=== PATIENT | female | born 1945 | race Hispanic/Latino ===

== ENCOUNTER → 2017-08-13 | Outpatient (CLI) | payer MEDICARE, OTHER | END | disposition home or self-care (01) | LOC: RAH 09:07 | PROVIDERS: ATTEND Internal Medicine Cardiovascular Disease | DX: I71.2 Thoracic aortic aneurysm, without rupture (principal) | CPT/HCPCS: 71550 ==

== ENCOUNTER 2017-10-19 16:20 | Emergency (ER) | payer OTHER | END 2017-10-19 18:28 | disposition home or self-care (01) | LOC: EDH 16:20 | DX: I10 Essential (primary) hypertension (principal); R51 Headache; E11.9 Type 2 diabetes mellitus without complications; Z85.038 Personal history of other malignant neoplasm of large intestine; Z88.1 Allergy status to other antibiotic agents; Z88.8 Allergy status to other drugs, medicaments and biological substances | CPT/HCPCS: 93005 ==

== ENCOUNTER → 2018-08-26 | Outpatient (CLI) | payer OTHER ==
[~2018-08-26] MED LIST: AMLO1CAP2 PO; ASPI-555 PO; HYDR100T27 PO; HYDR25TA PO; LEVO75 PO
== END | disposition home or self-care (01) ==
LOC: SHCH 10:08
PROVIDERS: ATTEND Internal Medicine Cardiovascular Disease
DX: R09.89 Other specified symptoms and signs involving the circulatory and respiratory systems (principal)
CPT/HCPCS: 93880

== ENCOUNTER 2019-01-08 07:30 | Day surgery (SDC) | payer OTHER ==
[~2019-01-08] VITALS: Ht 149.9 cm; Wt 52.2 kg
[2019-01-08] VITALS (7 sets, daily range): BP systolic 85–120; BP diastolic 28–54
[~2019-01-08 07:30] MED LIST changes: -HYDR25TA PO; +PROPOFOL 10 MG/ML 20ML VIAL IV ONE; +SODIUM CHLORIDE 0.9% 1000ML 1,000 ML IV ONE
== END 2019-01-08 13:03 | disposition home or self-care (01) ==
LOC: ENDO 07:30 → DAH 07:30 → ENDO 13:03
PROVIDERS: ATTEND Internal Medicine
DX: Z12.11 Encounter for screening for malignant neoplasm of colon (principal); K57.30 Diverticulosis of large intestine without perforation or abscess without bleeding; K64.0 First degree hemorrhoids; I10 Essential (primary) hypertension; E78.5 Hyperlipidemia, unspecified; K21.9 Gastro-esophageal reflux disease without esophagitis; M19.90 Unspecified osteoarthritis, unspecified site; E11.9 Type 2 diabetes mellitus without complications; E03.9 Hypothyroidism, unspecified; Z98.0 Intestinal bypass and anastomosis status; Z86.010 Personal history of colon polyps; R00.1 Bradycardia, unspecified; Z79.82 Long term (current) use of aspirin; Z79.899 Other long term (current) drug therapy; Z85.038 Personal history of other malignant neoplasm of large intestine; Z87.442 Personal history of urinary calculi; Z88.1 Allergy status to other antibiotic agents; Z88.8 Allergy status to other drugs, medicaments and biological substances; Z90.49 Acquired absence of other specified parts of digestive tract
CPT/HCPCS: 82948 ×2; 93005; A4606; G0105; J2704; J7030; 45378

== ENCOUNTER → 2019-08-21 | Outpatient (CLI) | payer OTHER ==
[~2019-08-21] MED LIST changes: +IOHEXOL-350 75 ML VIAL IV ONE; -PROPOFOL 10 MG/ML 20ML VIAL IV ONE; -SODIUM CHLORIDE 0.9% 1000ML 1,000 ML IV ONE
== END | disposition home or self-care (01) ==
LOC: RAH 07:47
PROVIDERS: ATTEND Internal Medicine Cardiovascular Disease
DX: J98.11 Atelectasis (principal); I70.0 Atherosclerosis of aorta; M43.8X6 Other specified deforming dorsopathies, lumbar region; M47.814 Spondylosis without myelopathy or radiculopathy, thoracic region; Z90.49 Acquired absence of other specified parts of digestive tract
CPT/HCPCS: 71275; Q9967

== ENCOUNTER 2020-03-08 11:41 | Observation (INO) | payer OTHER ==
[~2020-03-08] VITALS: Ht 149.9 cm; Wt 49.9 kg
[~2020-03-08 11:41] MED LIST changes: -ASPI-555 PO; +ASPI-556 PO; -IOHEXOL-350 75 ML VIAL IV ONE
[2020-03-08 12:09] LABS: APPEARANCE,URINE Clear (CLEAR); BILIRUBIN,URINE Negative (NEGATIVE); COLOR,URINE Yellow (YELLOW); GLUCOSE, URINE (UA) Negative (NEGATIVE); KETONES,URINE Negative (NEGATIVE); LEUKOCYTE ESTERASE ,URINE Negative (NEGATIVE); NITRATE,URINE Negative (NEGATIVE); OCCULT BLOOD,URINE Negative (NEGATIVE); PROTEIN,URINE Negative (NEGATIVE); UROBILINOGEN,URINE 0.2 mg/dL (0.2-1.0)
[2020-03-08] MEDS ORDERED: SODIUM CHLORIDE 0.9% 500ML 500 ML IV ONE ×2 (12:22→14:55)
[2020-03-08 12:42] LABS: CREATININE 0.8 mg/dL (0.5-1.5); POTASSIUM 3.6 mmol/L (3.5-5.1)
[2020-03-08 12:50] LABS: ALBUMIN 4.1 g/dL (3.5-5.0); BILIRUBIN,TOTAL 0.2 mg/dL (0.2-1.0); TOTAL PROTEIN, SERUM 8.6 g/dL (6.0-8.3)
[2020-03-08 12:55] LABS: MAGNESIUM 1.8 mg/dL (1.80-2.40); THYROID STIMULATING HORMONE 0.45 uIU/mL (0.36-3.74)
[2020-03-08 13:01] LABS: BASOPHILS % (AUTO) 0.5 % (0.0-5.0); EOSINOPHILS % (AUTO) 0.2 % (0.0-8.0); HEMATOCRIT 39.1 % (36-48); MEAN CORPUSCULAR HEMOGLOBIN 32.4 pg (27.0-33.0); MEAN CORPUSCULAR HGB CONC 33.8 g/dL (32.0-36.0); MEAN CORPUSCULAR VOLUME 96.1 fL (79-99); NEUTROPHILS % (AUTO) 78.7 % (40.0-77.0); PLATELET COUNT (AUTO) 320 K/uL (130-400); RED BLOOD CELL COUNT(AUTO) 4.07 MIL/uL (4.00-5.50); RED CELL DISTRIBUTION WIDTH 12.5 % (11.0-15.5); WHITE BLOOD COUNT (AUTO) 8.9 K/uL (4.8-10.8)
[2020-03-08] MEDS ORDERED: SODIUM CHLORIDE 0.9% 1000ML 1,000 ML IV ONE (16:44)
[2020-03-08 16:57] LABS: CREATINE KINASE, TOTAL 65 U/L (21-232); MYOGLOBIN 29 ng/mL (10-92); TROPONIN I < 0.04 ng/mL (0.00-0.06)
[2020-03-08] MEDS ORDERED: GUAIFENESIN-DM 200/20 MG 10 ML PO PRN (18:00)
[2020-03-08] MEDS ORDERED: HYDRALAZINE HCL 20 MG/ML VIAL IV PRN (18:00)
[2020-03-08] MEDS ORDERED: POTASSIUM CHLORIDE 20MEQ/100ML 100 ML IV PRN (18:00)
[2020-03-08] MEDS ORDERED: POTASSIUM CHLORIDE 10% ELIXIR 20 MEQ/15 ML UDCUP PO PRN (18:00)
[2020-03-08] MEDS ORDERED: MORPHINE SULFATE 2 MG/ML 1ML SYG IV PRN (18:00)
[2020-03-08] MEDS ORDERED: ZOLPIDEM TARTRATE 5 MG TAB PO PRN (18:00)
[2020-03-08] MEDS ORDERED: POTASSIUM CHLORIDE 20 MEQ ERTAB PO PRN (18:00)
[2020-03-08] MEDS ORDERED: NITROGLYCERIN 0.4 MG SL TAB SL PRN (18:00)
[2020-03-08] MEDS ORDERED: LACTULOSE 20 GM/30 ML UDCUP PO PRN (18:00)
[2020-03-08] MEDS ORDERED: LIDOCAINE HCL-MPF 1% 2ML VIAL IV PRN (18:00)
[2020-03-08] MEDS ORDERED: ONDANSETRON HCL 4 MG/2 ML VIAL IV PRN (18:00)
[2020-03-08] MEDS ORDERED: MAG HYDROX/AL HYDROX/SIMETH ES 30 ML SUSP UDCUP PO PRN (18:00)
[2020-03-08] MEDS ORDERED: ACETAMINOPHEN 325 MG TAB PO PRN ×2 (18:00)
[2020-03-08] MEDS ORDERED: MAGNESIUM 2GM PREMIX 50ML 50 ML IV PRN (18:00)
[2020-03-08] MEDS ORDERED: DiphenhydrAMINE HCL 50 MG/ML VIAL IV PRN (18:00)
[2020-03-08] MEDS ORDERED: DIPHENHYDRAMINE HCL 25 MG CAPSULE PO PRN (18:00)
[2020-03-08] MEDS ORDERED: POTASSIUM CHLORIDE 20 MEQ ERTAB PO ONE (19:42)
[2020-03-08] MEDS ORDERED: MAGNESIUM 2GM PREMIX 50ML 50 ML IV ONE (19:43)
[2020-03-08] MEDS ORDERED: ENOXAPARIN SODIUM 40 MG/0.4 ML SYRINGE SQ ONE (19:43)
[2020-03-08] MEDS: FAMOTIDINE 20MG TAB 20 MG TAB PO SCH (21:00)
[2020-03-08] MEDS: INSULIN HUMULIN R 100 UNIT/ML 3ML SQ SCH (21:00)
[2020-03-09 02:01] LABS: CREATINE KINASE, TOTAL 41 U/L (21-232); MYOGLOBIN 19 ng/mL (10-92); TROPONIN I < 0.04 ng/mL (0.00-0.06)
[2020-03-09 06:50] LABS: BASOPHILS % (AUTO) 0.7 % (0.0-5.0); EOSINOPHILS % (AUTO) 2.9 % (0.0-8.0); HEMATOCRIT 36.5 % (36-48); LYMPHOCYTES % (AUTO) 31.3 % (21.0-51.0); MEAN CORPUSCULAR HGB CONC 32.9 g/dL (32.0-36.0); MEAN CORPUSCULAR VOLUME 97.3 fL (79-99); MONOCYTES % (AUTO) 8.9 % (3.0-13.0); NEUTROPHILS % (AUTO) 55.8 % (40.0-77.0); PLATELET COUNT (AUTO) 281 K/uL (130-400); RED BLOOD CELL COUNT(AUTO) 3.75 MIL/uL (4.00-5.50); RED CELL DISTRIBUTION WIDTH 12.7 % (11.0-15.5); WHITE BLOOD COUNT (AUTO) 5.5 K/uL (4.8-10.8)
[2020-03-09 07:04] LABS: HEMOGLOBIN A1C 5.4 % (4.0-6.0)
[2020-03-09 07:08] LABS: ALBUMIN 3.2 g/dL (3.5-5.0); BILIRUBIN,TOTAL 0.2 mg/dL (0.2-1.0); CREATININE 0.6 mg/dL (0.5-1.5); MAGNESIUM 2.7 mg/dL (1.80-2.40); TOTAL PROTEIN, SERUM 7.1 g/dL (6.0-8.3)
[2020-03-09 07:15] LABS: CREATINE KINASE, TOTAL 55 U/L (21-232); MYOGLOBIN 27 ng/mL (10-92); TROPONIN I < 0.04 ng/mL (0.00-0.06)
[2020-03-09 07:22] LABS: B-TYPE NATRIURETIC PEPTIDE 106 pg/mL (0-100)
[2020-03-09] MEDS: INSULIN HUMULIN R 100 UNIT/ML 3ML SQ SCH ×2 (07:30→11:30)
[2020-03-09] MEDS ORDERED: SODIUM CHLORIDE 0.9% 1000ML 1,000 ML IV ONE (08:47)
[2020-03-09] MEDS ORDERED: FAMOTIDINE 20MG TAB 20 MG TAB ONE (08:47)
[2020-03-09] MEDS ORDERED: ENOXAPARIN SODIUM 40 MG/0.4 ML SYRINGE SQ ONE (08:47)
[2020-03-09] MEDS ORDERED: ENOXAPARIN SODIUM 40 MG/0.4 ML SYRINGE SQ SCH (09:00)
[2020-03-09] MEDS: FAMOTIDINE 20MG TAB 20 MG TAB PO SCH (09:00)
[2020-03-09] MEDS ORDERED: FLU VACC QS2020-21(6MOS UP)/PF 60 MCG/0.5 ML ML IM ONE (10:00)
[2020-03-09] MEDS ORDERED: SODIUM CHLORIDE 0.9% 1000ML 1,000 ML IV SCH (12:30)
--- NOTE | 2020-03-09 14:05 | NUR ---
DISCHARGE INSTRUCTIONS GIVEN TO PATIENT, MADE AWARE SHE NEEDS TO FOLLOW UP WITH PCP DR. ROHAN MORENO TOMORROW MORNING. INSTRUCTED TO HOLD BP MEDICATIONS. PATIENT AT THIS TIME DENIES ANY DIZZINESS OR HEADACHE. BP STABLE 121/50 PULSE62 O2 SAT 98% ON ROOM AIR. PATIENT WILL BE PICKED UP BY HER SISTER.
[2020-03-09 14:07] VITALS: BP 121/50
[2020-03-09] MEDS ORDERED: HYDRALAZINE HCL 25 MG TABLET PO SCH (17:00)
--- NOTE | 2020-03-09 17:36 | NUR ---
CM NOTE CHART REVIEWED, PATIENT DISCHARGED, OBS STATUS, NO CONCERNS VOICED BY RN OR TO RN BY PATIENT, NO TRIGGERS TO CM , DETAILED CM ASSESSMENT DEFERRED Addendum: 03/09/20 at 1738 by SHAKILA PA RN CM Amended: Links added.
[2020-03-10] MEDS ORDERED: LEVOTHYROXINE 75 MCG TABLET PO SCH (06:30)
[2020-03-10] MEDS ORDERED: ASPIRIN 81 MG EC TAB PO SCH (09:00)
== END 2020-03-09 14:51 | disposition home or self-care (01) ==
LOC: EDH 11:41 → EDHIP 16:00
PROVIDERS: ADMIT Internal Medicine; ATTEND Internal Medicine
DX: I95.9 Hypotension, unspecified (principal); I10 Essential (primary) hypertension; C18.9 Malignant neoplasm of colon, unspecified; E11.9 Type 2 diabetes mellitus without complications; Z90.49 Acquired absence of other specified parts of digestive tract; Z79.82 Long term (current) use of aspirin; Z79.899 Other long term (current) drug therapy; Z88.1 Allergy status to other antibiotic agents; Z88.8 Allergy status to other drugs, medicaments and biological substances
CPT/HCPCS: 36415 ×2; 71045; 76775; 80053 ×2; 80061; 81003; 82550 ×3; 82948 ×3; 83036; 83605 ×2; 83735 ×2; 83874 ×3; 83880; 84443; 84484 ×3; 85025 ×2; 93005; 96360; 99285; G0378 ×9; J1650 ×2; J3475; J7030 ×2; J7040 ×2; Q2035

== ENCOUNTER → 2021-03-24 | Outpatient (CLI) | payer MEDICARE ==
[~2021-03-24] MED LIST changes: -AMLO1CAP2 PO; -HYDR100T27 PO
== END | disposition home or self-care (01) ==
LOC: SHCH 14:48
PROVIDERS: ATTEND Internal Medicine Cardiovascular Disease
DX: I73.9 Peripheral vascular disease, unspecified (principal)
CPT/HCPCS: 93925

== ENCOUNTER 2021-04-26 23:11 | Emergency (ER) | payer MEDICARE ==
[~2021-04-26] VITALS: Ht 152.4 cm; Wt 54.0 kg
[2021-04-27] MEDS ORDERED: ACETAMINOPHEN 500 MG TABLET PO ONE (00:30)
[2021-04-27 00:43] VITALS: BP 140/60
== END 2021-04-27 02:06 | disposition home or self-care (01) ==
LOC: EDH 23:11
DX: S00.81XA Abrasion of other part of head, initial encounter (principal); E78.00 Pure hypercholesterolemia, unspecified; I10 Essential (primary) hypertension; Z88.1 Allergy status to other antibiotic agents; Z88.8 Allergy status to other drugs, medicaments and biological substances; Z79.82 Long term (current) use of aspirin; X58.XXXA Exposure to other specified factors, initial encounter; Y93.89 Activity, other specified; Y92.89 Other specified places as the place of occurrence of the external cause; Y99.8 Other external cause status
CPT/HCPCS: 70450

== ENCOUNTER 2021-10-21 12:14 | Emergency (ER) | payer MEDICARE ==
[~2021-10-21] VITALS: Ht 149.9 cm; Wt 52.2 kg
[2021-10-21 12:29] VITALS: BP 149/87
[2021-10-21 12:40] LABS: APPEARANCE,URINE Clear (CLEAR); BILIRUBIN,URINE Negative (NEGATIVE); COLOR,URINE Yellow (YELLOW); GLUCOSE, URINE (UA) Negative (NEGATIVE); KETONES,URINE Negative (NEGATIVE); LEUKOCYTE ESTERASE ,URINE Negative (NEGATIVE); NITRATE,URINE Negative (NEGATIVE); OCCULT BLOOD,URINE Small (NEGATIVE); PROTEIN,URINE Negative (NEGATIVE); UROBILINOGEN,URINE 0.2 mg/dL (0.2-1.0)
[2021-10-21 12:58] LABS: BASOPHILS % (AUTO) 0.3 % (0.0-5.0); EOSINOPHILS % (AUTO) 0.1 % (0.0-8.0); HEMATOCRIT 43.7 % (36-48); LYMPHOCYTES % (AUTO) 7.9 % (21.0-51.0); MEAN CORPUSCULAR HEMOGLOBIN 32.5 pg (27.0-33.0); MEAN CORPUSCULAR HGB CONC 33.2 g/dL (32.0-36.0); MONOCYTES % (AUTO) 4.1 % (3.0-13.0); PLATELET COUNT (AUTO) 290 K/uL (130-400); RED BLOOD CELL COUNT(AUTO) 4.46 MIL/uL (4.00-5.50); WHITE BLOOD COUNT (AUTO) 12.7 K/uL (4.8-10.8)
[2021-10-21] MEDS ORDERED: 0.9%NACL 1000ML 1,000 ML IV SCH (13:00)
[2021-10-21 13:12] LABS: BACTERIA,URINE Rare /HPF (None Seen); SQUAMOUS EPITHELIAL CELL,UR Rare /HPF (0-2); WBC,URINE 0-1 /HPF (0-1)
[2021-10-21 13:16] LABS: CREATININE 0.8 mg/dL (0.5-1.5); INFLUENZA TYPE A NEGATIVE FOR TYPE A (NEG); POTASSIUM 3.8 mmol/L (3.5-5.1)
[2021-10-21 13:17] LABS: INFLUENZA TYPE B NEGATIVE FOR TYPE B (NEG)
[2021-10-21 13:20] LABS: ALBUMIN 4.1 g/dL (3.5-5.0); BILIRUBIN,TOTAL 0.4 mg/dL (0.2-1.0); TOTAL PROTEIN, SERUM 8.9 g/dL (6.0-8.3)
== END 2021-10-21 14:12 | disposition home or self-care (01) ==
LOC: EDH 12:14
DX: A08.4 Viral intestinal infection, unspecified (principal); E86.0 Dehydration; E78.00 Pure hypercholesterolemia, unspecified; I10 Essential (primary) hypertension; I95.1 Orthostatic hypotension; Z85.028 Personal history of other malignant neoplasm of stomach; Z85.038 Personal history of other malignant neoplasm of large intestine; Z88.1 Allergy status to other antibiotic agents; Z88.8 Allergy status to other drugs, medicaments and biological substances; Z90.49 Acquired absence of other specified parts of digestive tract
CPT/HCPCS: 36415; 80053; 81001; 83605; 85025; 87804

== ENCOUNTER 2022-10-08 23:42 | Emergency (ER) | payer MEDICARE ==
[~2022-10-08] VITALS: Ht 149.9 cm; Wt 53.5 kg
[2022-10-09 00:09] VITALS: BP 155/60
== END 2022-10-09 00:20 | disposition home or self-care (01) ==
LOC: EDH 23:42
DX: I10 Essential (primary) hypertension (principal); R51.9 Headache, unspecified; E78.00 Pure hypercholesterolemia, unspecified; E03.9 Hypothyroidism, unspecified; Z79.899 Other long term (current) drug therapy; Z88.1 Allergy status to other antibiotic agents; Z88.8 Allergy status to other drugs, medicaments and biological substances; Z90.49 Acquired absence of other specified parts of digestive tract
CPT/HCPCS: 99281

== ENCOUNTER 2024-06-08 19:10 | Emergency (ER) | payer SELFPAY ==
[~2024-06-08] VITALS: Ht 149.9 cm; Wt 49.9 kg
[2024-06-08 19:39] LABS: BASOPHILS # (AUTO) 0.03 K/uL (0.00-0.20); BASOPHILS % (AUTO) 0.4 % (0.0-5.0); EOSINOPHILS # (AUTO) 0.13 K/uL (0.00-0.70); EOSINOPHILS % (AUTO) 1.5 % (0.0-8.0); HEMATOCRIT 36.8 % (36-48); IMMATURE GRANULOCYTE ABSOLUTE 0.07 K/uL (0-1); LYMPHOCYTES # (AUTO) 1.8 K/uL (1.0-4.8); LYMPHOCYTES % (AUTO) 21.1 % (21.0-51.0); MEAN CORPUSCULAR HGB CONC 34.5 g/dL (32.0-36.0); MEAN CORPUSCULAR VOLUME 98.4 fL (79-99); MONOCYTES # (AUTO) 0.6 K/uL (0.1-1.0); MONOCYTES % (AUTO) 7.4 % (3.0-13.0); NEUTROPHILS # (AUTO) 5.9 K/uL (1.8-7.7); NEUTROPHILS % (AUTO) 68.8 % (40.0-77.0); PLATELET COUNT (AUTO) 312 K/uL (130-400); RED BLOOD CELL COUNT(AUTO) 3.74 MIL/uL (4.00-5.50); RED CELL DISTRIBUTION WIDTH 13.2 % (11.0-15.5); WHITE BLOOD COUNT (AUTO) 8.5 K/uL (4.8-10.8)
[2024-06-08 19:49] LABS: CREATININE 0.8 mg/dL (0.5-1.0); POTASSIUM 4.2 mmol/L (3.5-5.1)
--- NOTE | 2024-06-08 20:00 | HMCIMG ---
Exam Type: FOOT COMP 3+VWS RT Clinical Information: WOUND, PAIN, SWELLING Comparison: None Findings: The examination is unremarkable except for calcaneal spurs. No fractures or dislocations are seen. No radiopaque foreign bodies are noted. Soft tissues are preserved. IMPRESSION: Calcaneal spurs. Is
[2024-06-08] MEDS ORDERED: CLIN-141 PO (21:30)
--- NOTE | 2024-06-08 21:30 | ERN ---
ED Note History of Present Illness Stated Complaint: RT FOOT WOUND Chief Complaint: Cellulitis Time Seen by MD: 19:14 Time Seen by Midlevel: 19:14 Dictation: The Patient is a 79-year-old female with a history of hypertension, colon cancer not on any chemotherapy, hernia repair who presents to the emergency department with complaints of right foot cellulitis onset Sunday. Patient reports it started on her toe after she bumped it with something and develop a wound. Patient reports bloody drainage. Denies any fevers. Denies nausea vomiting or diarrhea. Allergies: Coded Allergies: Anvezaq-Qea-Xkn Reductase Inhibitor (Verified Allergy, Unknown, 12/29/17) clonidine (Verified Allergy, Unknown, 12/29/17) levofloxacin (Verified Allergy, Unknown, 12/29/17) Home Meds Reported Medications Levothyroxine Sodium (Levothroid/Synthroid) 75 Mcg Tab, 75 MCG PO ACBKFST, TAB 12/30/17 Aspirin (Aspir 81) 81 Mg Tablet.dr, 81 MG PO AM, TAB 12/30/17 Past Medical History Past Medical History: High Cholesterol, Hypertension, Hypothyroid, Other Additional Past Medical Hx: HX OF GALLSTONES Surgical History: Cholecystectomy Surgical History Other: COLON RESECTION Family History: Negative Social History: Negative, Lives with family RN Note Reviewed/Agreed w/PFSH: Yes Review of System Dictation Constitutional: Negative for fever,chills, and weight loss Eyes: Negative for injury, pain,redness, and discharge ENT: Negative for injury,pain or swelling Cardiovascular: Negative for chest pain, palpitations, and edema Respiratory: Negative for shortness of breath, cough, and wheezing, Abdomen/GI: Negative for abdominal pain, nausea, vomiting, diarrhea, and constipation Back: Negative for injury and pain : Negative for injury, bleeding and discharge MS/Extremity: Negative for injury and deformity Skin: Negative for rash, and discoloration positive for redness to right foot Neuro: Negative for headache, weakness, numbness, tingling, and seizure Psych: Negative for suicide ideation, homicidal ideation, and hallucinations Initial Vital Sign VS Vital Signs Date Time Temp Pulse Resp B/P (MAP) Pulse Ox O2 Delivery O2 Flow Rate FiO2 06/08/24 19:12 97.9 60 16 134/63 98 Room Air Physical Exam Dictation Vital Signs reviewed General Appearance: Alert, oriented x 3, no acute distress, well developed, nourished. Head and Face: non-traumatic. Eyes: PERRL, pink conjunctivas, eyelid no trauma, anterior chamber with arcus senilis. Ears: Pinnas intact and no signs of trauma or erythema ear canals clear and no discharge TM no erythema Nose: No discharge, no bleeding. Oropharynx: Mouth normal, tongue pink. pharynx clear,no erythema, tonsils no exudates, no abscesses noted, mucous membrane moist Neck: Supple, non-tender, no thyromegaly, no masses, no JVD, no bruits Breast:Deferred Chest:No tenderness, no crepitus, no paradoxical movement, no retractions Lungs:Clear, well-ventilated, symmetric, no rales, no wheezing, no rhonchi, no stridor, good breath sounds bilaterally Heart: Regular rate, regular rhythm, no murmur, no gallops Vascular: no peripheral edema, Abdomen: Soft, positive bowel sounds, nondistended, no guarding, nontender, no rebound, no masses no hepatomegaly, no splenomegaly, no Ryan's s ign, no hernias. Rectal: Deferred Genital: Deferred Neurological: Normal speech, motor function intact, sensory function intact Musculoskeletal: Neck nontender, full range of motion, back nontender, full range of motion, Extremities: nontender, full range of motion Skin: Color pink, dry, no turgor, no rash, no lacerations, no abrasions, no contusions. Erythema with warmth to right foot, right toe with skin tear, scant sanguinous drainage. Lymphatic: Deferred Results (Laboratory/Radiology) Laboratory/Radiology Laboratory Tests Test 06/08/24 19:19 White Blood Count 8.5 K/uL (4.8-10.8) Red Blood Count 3.74 MIL/uL (4.00-5.50) L Hemoglobin 12.7 g/dL (12.0-16.0) Hematocrit 36.8 % (36-48) Mean Corpuscular Volume 98.4 fL (79-99) Mean Corpuscular Hemoglobin 34.0 pg (27.0-33.0) H Mean Corpuscular Hemoglobin Concent 34.5 g/dL (32.0-36.0) Red Cell Distribution Width 13.2 % (11.0-15.5) Platelet Count 312 K/uL (130-400) Mean Platelet Volume 8.4 fL (7.5-10.5) Immature Granulocyte % (Auto) 0.8 % (0-1) Neutrophils (%) (Auto) 68.8 % (40.0-77.0) Lymphocytes (%) (Auto) 21.1 % (21.0-51.0) Monocytes (%) (Auto) 7.4 % (3.0-13.0) Eosinophils (%) (Auto) 1.5 % (0.0-8.0) Basophils (%) (Auto) 0.4 % (0.0-5.0) Neutrophils # (Auto) 5.9 K/uL (1.8-7.7) Lymphocytes # (Auto) 1.8 K/uL (1.0-4.8) Monocytes # (Auto) 0.6 K/uL (0.1-1.0) Eosinophils # (Auto) 0.13 K/uL (0.00-0.70) Basophils # (Auto) 0.03 K/uL (0.00-0.20) Absolute Immature Granulocyte (auto 0.07 K/uL (0-1) Nucleated Red Blood Cells 0.0 % (0.0-0.19) Sodium Level 136 mmol/L (136-145) Potassium Level 4.2 mmol/L (3.5-5.1) Chloride Level 100 mmol/L (101-111) L Carbon Dioxide Level 31 mmol/L (21-32) Blood Urea Nitrogen 12 mg/dL (7-18) Creatinine 0.8 mg/dL (0.5-1.0) Glomerular Filtration Rate Calc 75 mL/min (>90) Random Glucose 110 mg/dL (70-105) H Lactic Acid Level 0.9 mmol/L (0.8-2.5) Total Calcium 9.5 mg/dL (8.5-10.1) REASON: WOUND, PAIN, SWELLING ORDERING PHYSICIAN: CARMINE CASANOVA MD PROCEDURE: FT 3VW RT - FOOT COMP 3+VWS RT Exam Type: FOOT COMP 3+VWS RT Clinical Information: WOUND, PAIN, SWELLING Comparison: None Findings: The examination is unremarkable except for calcaneal spurs. No fractures or dislocations are seen. No radiopaque foreign bodies are noted. Soft tissues are preserved. IMPRESSION: Calcaneal spurs. Is Labs Reviewed?: Yes ED Course ED Course Orders Procedure Category Date Status Time Cbc With Differential LAB 06/08/24 Complete 19:12 Basic Metabolic Panel LAB 06/08/24 Complete 19:12 Lactic Acid LAB 06/08/24 Complete 19:12 Foot Comp 3+Vws Rt RAD 06/08/24 Resulted 19:12 Ceftriaxone 1g Vial PHA 06/08/24 Transmitted (Rocephine 1g Inj) 21:30 Vital Signs Date Time Temp Pulse Resp B/P (MAP) Pulse Ox O2 Delivery O2 Flow Rate FiO2 06/08/24 19:12 97.9 60 16 134/63 98 Room Air Medical Decision Making MDM The Patient is a 79-year-old female with a history of hypertension, colon cancer not on any chemotherapy, hernia repair who presents to the emergency department with complaints of right foot cellulitis onset Sunday. Patient reports it started on her toe after she bumped it with something and develop a wound. Patient reports bloody drainage. Denies any fevers. Denies nausea vomiting or diarrhea. CBC showed no leukocytosis,, no anemia, chemistry showed GFR of 75, negative lactic acid. Patient reports her doctor gave her topical ointment for cellulit is. Patient nontoxic appearance, in no acute distress. We will try oral antibiotics for cellulitis. Patient instructed to follow up with PCP tomorrow and if symptoms worsen like increased redness, fevers to return to ER. Patient is agree with discharge planning. Differential diagnosis: Cellulitis, osteomyelitis, sepsis, electrolyte imbalance Need for hospitalization: Patient does not meet criteria for hospitalization. There are no social concerns with this patient. DX & DISP Disposition: Discharge Departure Impression: Primary Impression: Cellulitis of right foot Condition: Stable Scripts Clindamycin HCl (Clindamycin HCl) 300 Mg Capsule 1 CAP PO QID for 5 Days, #20 CAP 0 Refills Prov: ALBERTO FERREIRA ENTERTAINMENT AGENT 06/08/24 Additional Instructions: Please follow up with your PCP tomorrow or as soon as possible. Take medications as prescribed. If symptoms worsen, redness goes up your upper leg, fevers, abnormal drainage develops please return to ER. FOLLOW-UP WITH PRIMARY CARE PROVIDER IN 1 TO 2 DAYS. TAKE MEDICATIONS DIRECTED HERE IN THE EMERGENCY ROOM. OKAY TO CONTINUE HOME MEDICATIONS UNLESS OTHERWISE DISCUSSED DURING YOUR VISIT IN THE EMERGENCY ROOM TODAY. RETURN TO YOUR NEAREST EMERGENCY ROOM IF SYMPTOMS WORSEN OR IF THERE IS NO IMPROVEMENT. CALL 911 IF YOU NEED IMMEDIATE ASSISTANCE. TAKE TYLENOL OR MOTRIN [id number] NEEDED AND IF NO CONTRAINDICATIONS ARE PRESENT. INCREASE ORAL HYDRATION. A WOUND CULTURE OR URINE CULTURE WAS ORDERED HERE IN THE EMERGENCY ROOM DEPARTMENT PLEASE FOLLOW-UP WITH PRIMARY CARE PROVIDER AND ADVISE THEM TO GET REPEAT PORTS FROM OUR FACILITY. IF YOU HAD ANY ALEXANDRA WRAP/SPLINTS THAT WERE APPLIED HERE, PLEASE DO NOT REMOVE THEM UNTIL YOU SEE YOUR PRIMARY CARE OR SPECIALTY. Referrals: SELF,REFERRAL (PCP) Time of Disposition: 21:27 I have reviewed the case, and I agree with, Diagnosis and Plan ALBERTO FERREIRA [facility] Jun 08, 2024 21:30
[2024-06-08] MEDS: cefTRIAXone 1G VIAL IM ONE (22:05)
[2024-06-08 22:10] VITALS: BP 135/56; PULSE 50; RESP 18; TEMP 98.4; O2SAT 100
== END 2024-06-08 22:13 | disposition home or self-care (01) ==
LOC: EDH 19:10
DX: L03.115 Cellulitis of right lower limb (principal); E78.00 Pure hypercholesterolemia, unspecified; E03.9 Hypothyroidism, unspecified; I10 Essential (primary) hypertension; Z88.1 Allergy status to other antibiotic agents; Z88.8 Allergy status to other drugs, medicaments and biological substances; Z90.49 Acquired absence of other specified parts of digestive tract
CPT/HCPCS: 99284; 96374; 80048; 85025; 83605; 36415; 73630; J0696

== ENCOUNTER 2024-07-11 19:33 | Emergency (ER) | payer BC ==
[~2024-07-11] VITALS: Ht 149.9 cm; Wt 49.1 kg
[~2024-07-11 19:33] MED LIST changes: +CLIN-141 PO
[2024-07-11 20:57] LABS: BASOPHILS # (AUTO) 0.04 K/uL (0.00-0.20); BASOPHILS % (AUTO) 0.4 % (0.0-5.0); EOSINOPHILS # (AUTO) 0.07 K/uL (0.00-0.70); EOSINOPHILS % (AUTO) 0.7 % (0.0-8.0); HEMATOCRIT 39.8 % (36-48); IMMATURE GRANULOCYTE ABSOLUTE 0.04 K/uL (0-1); LYMPHOCYTES # (AUTO) 1.8 K/uL (1.0-4.8); LYMPHOCYTES % (AUTO) 17.5 % (21.0-51.0); MEAN CORPUSCULAR HEMOGLOBIN 32.8 pg (27.0-33.0); MEAN CORPUSCULAR HGB CONC 33.9 g/dL (32.0-36.0); MEAN CORPUSCULAR VOLUME 96.6 fL (79-99); MONOCYTES # (AUTO) 0.8 K/uL (0.1-1.0); MONOCYTES % (AUTO) 8.3 % (3.0-13.0); NEUTROPHILS # (AUTO) 7.3 K/uL (1.8-7.7); NEUTROPHILS % (AUTO) 72.7 % (40.0-77.0); PLATELET COUNT (AUTO) 267 K/uL (130-400); RED BLOOD CELL COUNT(AUTO) 4.12 MIL/uL (4.00-5.50); RED CELL DISTRIBUTION WIDTH 12.7 % (11.0-15.5)
[2024-07-11] MEDS ORDERED: HYDR25TA PO (21:15)
[2024-07-11] MEDS ORDERED: AMLO1CAP87 PO (21:15)
[2024-07-11] MEDS: hydrALAZine 20MG/ML VIAL IV ONE (21:15)
[2024-07-11] MEDS ORDERED: CLON0.1T PO (21:15)
[2024-07-11] MEDS ORDERED: MELO-108 PO (21:15)
[2024-07-11] MEDS ORDERED: LEVO50CA4 PO (21:15)
[2024-07-11] MEDS ORDERED: POTA-202 PO (21:15)
--- NOTE | 2024-07-11 21:16 | NUR ---
MED REC DONE AT THIS TIME.
[2024-07-11 21:18] LABS: CREATININE 0.6 mg/dL (0.5-1.0); POTASSIUM 3.9 mmol/L (3.5-5.1)
--- NOTE | 2024-07-11 21:20 | HMCIMG ---
FOOT COMP 3+VWS RT HISTORY: Osteomyelitis COMPARISON: None TECHNIQUE: 3 images of right foot were obtained. FINDINGS: There is no acute displaced fracture or dislocation. There is soft tissue swelling. Evaluation for osteomyelitis is limited with radiographs. There is a calcaneal spur. Degenerative changes are seen. IMPRESSION: 1. Findings as described above.
[2024-07-11] MEDS: cefTRIAXone 1G VIAL IVPB ONE (21:28)
[2024-07-11 22:14] LABS: ERYTHROCYTE SEDIMENTATION RATE 25 MM/HR (0-30)
[2024-07-11 22:15] VITALS: BP 165/74; PULSE 62; RESP 20; TEMP 98.8; O2SAT 98
--- NOTE | 2024-07-11 22:16 | ERN ---
General Chief Complaint: Wound Check Stated Complaint: LEFT FOOT SWOLLEN Time Seen by MD: 19:36 Time Seen by Midlevel: 19:36 Source: patient History of Present Illness Initial Comments Patient is a 79-year-old female with a past medical history of type 2 diabetes and hypertension presenting to the emergency department with what appears to be a sore to the right great toe and surrounding erythema. She denies any fever, chills, or any other symptoms at this time. Allergies: Coded Allergies: Owwmdqs-Ruf-Ejb Reductase Inhibitor (Verified Allergy, Unknown, 12/29/17) clonidine (Verified Allergy, Unknown, 12/29/17) levofloxacin (Verified Allergy, Unknown, 12/29/17) Home Meds Active Scripts Sulfamethoxazole/Trimethoprim (Bactrim Ds Tablet) 800 Mg-160 Mg Tablet, 1 TAB PO BID for 7 Days, #14 TAB 0 Refills Prov:MECCA PETERSEN 07/11/24 Clindamycin HCl (Clindamycin HCl) 300 Mg Capsule, 1 CAP PO QID for 5 Days, #20 CAP 0 Refills Prov:ALBERTO FERREIRA DISC RULER OPERATOR 06/08/24 Reported Medications Amlodipine Besylate/Benazepril (Amlodipine-Benazepril 2.5-10) 2.5 Mg-10 Mg Capsule, 1 CAP PO DAILY for 30 Days, #30 CAP 0 Refills 07/11/24 Meloxicam (Meloxicam) 15 Mg Tablet, 1 TAB PO DAILY for 30 Days, #30 TAB 0 Refills 07/11/24 Clonidine HCl (Clonidine HCl) 0.1 Mg Tablet, 0.1 MG PO AD PRN for IF SBP GREATER THAN 160, TAB 07/11/24 Potassium Chloride (Potassium Chloride) 20 Meq Tab.er.prt, 1 TAB PO BID for 30 Days, #60 TAB 0 Refills 07/11/24 Hydrochlorothiazide (Hydrochlorothiazide) 25 Mg Tablet, 1 TAB PO DAILY for 30 Days, #30 TAB 0 Refills 07/11/24 Levothyroxine Sodium (Levothyroxine) 50 Mcg Capsule, 1 CAP PO DAILY for 30 Days, #30 CAP 0 Refills 07/11/24 Levothyroxine Sodium (Levothroid/Synthroid) 75 Mcg Tab, 75 MCG PO ACBKFST, TAB 12/30/17 Aspirin (Aspir 81) 81 Mg Tablet.dr, 81 MG PO AM, TAB 12/30/17 Past Medical History Past Medical History: High Cholesterol, Hypertension, Hypothyroid, Other Medical History Other: HX OF GALLSTONES Past Surgical History: Cholecystectomy Surgical History Other: COLON RESECTION Family History Family History: Negative Social History Social History: Negative, Lives with family ROS Dictation CONSTITUTIONAL: Negative except for HPI HEAD/FACE: Negative except for HPI EENT: Negative except for HPI RESPIRATORY: Negative except for HPI GASTROINTESTINAL/ABDOMINAL: Negative except for HPI GENITOURINARY: Negative except for HPI MUSCULOSKELETAL: Negative except for HPI INTEGUMENTARY: Negative except for HPI NEUROLOGICAL/PSYCH: Negative except for HPI HEMATOLOGIC/LYMPHATIC: Negative except for HPI All Systems Negative, Except as noted above. 13 point review of systems assessed and all negative except for above. Physical Exam Physical Exam Dictation Vital Signs reviewed General Appearance: Alert, oriented x 3, no acute distress, well developed, nourished. Head and Face: non-traumatic. Eyes: PERRL, pink conjunctivas, eyelid no trauma, anterior chamber with arcus senilis. Ears: Pinnas intact and no signs of trauma or erythema ear canals clear and no discharge TM no erythema Nose: No discharge, no bleeding. Oropharynx: Mouth normal, tongue pink, pharynx clear,no erythema, tonsils no exudates, no abscesses noted, mucous membrane moist Neck: Supple, non-tender, no thyromegaly, no masses, no JVD, no bruits Breast:Deferred Chest:No tenderness, no crepitus, no paradoxical movement, no retractions Lungs:Clear, well-ventilated, symmetric, no rales, no wheezing, no rhonchi, no stridor, good breath sounds bilaterally Heart: Regular rate, regular rhythm, no murmur, no gallops Vascular: no peripheral edema, Abdomen: Soft, positive bowel sounds, nondistended, no guarding, nontender, no rebound, no masses no hepatomegaly, no splenomegaly, no Ryan's sign, no hernias. Rectal: Deferred Genital: Deferred Neurological: Normal speech, motor function intact, sensory function intact Musculoskeletal: Neck nontender, full range of motion, back nontender, full range of motion, Extremities: nontender, full range of motion Skin: Erythema to the dorsal aspect of the right foot consistent with an early cellulitis Lymphatic: Deferred Results Laboratory and Microbiology Lab and Micro Result Laboratory Tests Test 07/11/24 20:46 White Blood Count 10.0 K/uL (4.8-10.8) Red Blood Count 4.12 MIL/uL (4.00-5.50) Hemoglobin 13.5 g/dL (12.0-16.0) Hematocrit 39.8 % (36-48) Mean Corpuscular Volume 96.6 fL (79-99) Mean Corpuscular Hemoglobin 32.8 pg (27.0-33.0) Mean Corpuscular Hemoglobin Concent 33.9 g/dL (32.0-36.0) Red Cell Distribution Width 12.7 % (11.0-15.5) Platelet Count 267 K/uL (130-400) Mean Platelet Volume 8.9 fL (7.5-10.5) Immature Granulocyte % (Auto) 0.4 % (0-1) Neutrophils (%) (Auto) 72.7 % (40.0-77.0) Lymphocytes (%) (Auto) 17.5 % (21.0-51.0) L Monocytes (%) (Auto) 8.3 % (3.0-13.0) Eosinophils (%) (Auto) 0.7 % (0.0-8.0) Basophils (%) (Auto) 0.4 % (0.0-5.0) Neutrophils # (Auto) 7.3 K/uL (1.8-7.7) Lymphocytes # (Auto) 1.8 K/uL (1.0-4.8) Monocytes # (Auto) 0.8 K/uL (0.1-1.0) Eosinophils # (Auto) 0.07 K/uL (0.00-0.70) Basophils # (Auto) 0.04 K/uL (0.00-0.20) Absolute Immature Granulocyte (auto 0.04 K/uL (0-1) Nucleated Red Blood Cells 0.0 % (0.0-0.19) Erythrocyte Sedimentation Rate 25 MM/HR (0-30) Sodium Level 139 mmol/L (136-145) Potassium Level 3.9 mmol/L (3.5-5.1) Chloride Level 100 mmol/L (101-111) L Carbon Dioxide Level 31 mmol/L (21-32) Blood Urea Nitrogen 17 mg/dL (7-18) Creatinine 0.6 mg/dL (0.5-1.0) Glomerular Filtration Rate Calc 91 mL/min (>90) Random Glucose 106 mg/dL (70-105) H Lactic Acid Level 1.1 mmol/L (0.8-2.5) Total Calcium 9.4 mg/dL (8.5-10.1) Procalcitonin < 0.05 ng/mL (0.05-0.5) L Labs Reviewed?: Yes MDM MDM: Differential diagnosis: Cellulitis, osteomyelitis, fracture, There are no social concerns with this patient. Prescription drug management Prescriptions will include: Bactrim Medical management and examination interpretation discussions were had by me with other qualified healthcare professionals as indicated for the patient's care. ED Course Orders Procedure Category Date Status Time Cbc With Differential LAB 07/11/24 Complete 20:17 Basic Metabolic Panel LAB 07/11/24 Complete 20:17 Lactic Acid LAB 07/11/24 Complete 20:17 Procalcitonin LAB 07/11/24 Complete 20:17 Erythrocyte LAB 07/11/24 Complete Sedimentation Rate 20:17 Foot Comp 3+Vws Rt RAD 07/11/24 Resulted 20:17 Hydralazine 20mg Inj PHA 07/11/24 Complete (Apresoline 20mg In 21:30 Ceftriaxone 1g Vial PHA 07/11/24 Complete (Rocephine 1g Inj) 21:30 Current Medications Medications (Trade) Dose Ordered Sig/Doris Route PRN Reason Start Time Stop Time Status Last Admin Dose Admin Ceftriaxone Sodium (ROCEphine 1G INJ) 1 gm ONCE ONCE IVPB 07/11/24 21:30 07/11/24 21:31 DC 07/11/24 21:28 Hydralazine HCl (APRESOLine 20MG INJ) 10 mg ONCE ONCE IV 07/11/24 21:30 07/11/24 21:31 DC 07/11/24 21:15 Vital Signs Date Time Temp Pulse Resp B/P (MAP) Pulse Ox O2 Delivery O2 Flow Rate FiO2 07/11/24 22:15 98.8 62 20 165/74 98 Room Air* 0 07/11/24 22:00 61 18 170/84 98 Room Air* 0 07/11/24 20:41 97.0 60 20 191/93 98 Room Air* 0 07/11/24 19:34 98.2 70 16 184/82 99 Room Air [facility] [address] [place] [address] IMAGING REPORT Signed PATIENT: YADIRA GLYNN MR#: [id number] : 1945 SEX: F AGE: 79 LOCATION: [facility] ORDER 19 STATUS: REG ER REPORT#: [id number] SERVICE 16 REASON: r/o osteo ORDERING PHYSICIAN: MECCA PETERSEN PROCEDURE: FT 3VW RT - FOOT COMP 3+VWS RT FOOT COMP 3+VWS RT HISTORY: Osteomyelitis COMPARISON: None TECHNIQUE: 3 images of right foot were obtained. FINDINGS: There is no acute displaced fracture or dislocation. There is soft tissue swelling. Evaluation for osteomyelitis is limited with radiographs. There is a calcaneal spur. Degenerative changes are seen. IMPRESSION: 1. Findings as described above. DICTATED BY: PETER TAYLOR MD DATE: 07/11/242117 ELECTRONICALLY SIGNED BY: PETER TAYLOR MD DATE: 07/11/242119 DX & DISP Disposition: Discharge Departure Impression: Primary Impression: Cellulitis of right foot Condition: Stable Scripts Sulfamethoxazole/Trimethoprim (Bactrim Ds Tablet) 800 Mg-160 Mg Tablet 1 TAB PO BID for 7 Days, #14 TAB 0 Refills Prov: MECCA PETERSEN 07/11/24 Additional Instructions: Your blood work today is unremarkable. Your x-ray does not show any evidence of a fracture or infection to the bone. On exam there is some redness to her right foot concerning for an early skin infection. You were given IV antibiotics in the emergency department and will be discharged home with a prescription for oral antibiotics. Please follow up with your primary care doctor in the next 2-3 days. If you develop any new or worsening symptoms please report to the ER for further evaluation. Referrals: SELF,REFERRAL (PCP) Time of Disposition: 22:15 I have reviewed the case, and I agree with, Diagnosis and Plan I performed the substantive portion of the visit. I have reviewed and personally made and approve the management plan that is documented in the note by myself or the BOBBI. I acknowledge for responsibility for the patient's management plan. MECCA PETERSEN Jul 11, 2024:16
[2024-07-11] MEDS ORDERED: SULF1TAB42 PO (22:17)
== END 2024-07-11 22:25 | disposition home or self-care (01) ==
LOC: EDH 19:33
DX: L03.115 Cellulitis of right lower limb (principal); E03.9 Hypothyroidism, unspecified; E11.9 Type 2 diabetes mellitus without complications; E78.00 Pure hypercholesterolemia, unspecified; I10 Essential (primary) hypertension; Z79.1 Long term (current) use of non-steroidal anti-inflammatories (NSAID); Z79.890 Hormone replacement therapy; Z79.899 Other long term (current) drug therapy; Z88.1 Allergy status to other antibiotic agents; Z88.8 Allergy status to other drugs, medicaments and biological substances; Z90.49 Acquired absence of other specified parts of digestive tract
CPT/HCPCS: 99284; 96365; 96375; 80048; 85025; 85651; 83605; 36415; 73630; 84145; J0360; J0696